=== PATIENT | male | born 1950 | race Two or more races ===

== ENCOUNTER 2017-08-15 12:35 | Emergency (ER) | payer MEDICARE, MEDICAID ==
[2017-08-15] MEDS: IPRATRPIUM/ALBUTEROL 0.5/2.5MG 3 ML NEBU. NEB (12:55)
[2017-08-15 12:57] LABS: ADD MAN DIFF? NO
[2017-08-15 12:59] LABS: BASO % 0 % (0-3); EOS % 0 % (0-3); HEMATOCRIT 44.6 % (39.0-53.0); HEMOGLOBIN 15.3 g/dL (13.0-17.5); LYMPH # 1.2 x10^3/uL (1.0-4.8); LYMPH % 10 % (24-48); MEAN CORPUSCULAR HEMOGLOBIN 30 pg (25-35); MEAN CORPUSCULAR HGB CONC 34 g/dL (31-37); MEAN CORPUSCULAR VOLUME 87 fL (79-100); MONO # 0.6 x10^3/uL (0.0-1.1); MONO % 5 % (0-9); NEUT # 9.9 x10^3uL (1.8-7.7); NEUT % 84 % (31-73); PLATELET COUNT 302 x10^3/uL (140-400); RED BLOOD COUNT 5.14 x10^6/uL (4.30-5.70); RED CELL DISTRIBUTION WIDTH 13.5 % (11.5-14.5); WHITE BLOOD COUNT 11.8 x10^3/uL (4.0-11.0)
[2017-08-15 13:06] LABS: BASE EXCESS ABG -2 mmol/L (-3-3); HCO3 ABG 24 mmol/L (21-28); PCO2 ABG 43 mmHg (35-46); PH ABG 7.36 (7.35-7.45); PO2 ABG 67 mmHg (65-108); SAT O2 ABG 92 % (92-99)
[2017-08-15] MEDS: methylPREDNISolone SOD SUCC PF 125 MG/2 ML VIAL. IV (13:08)
[2017-08-15 13:09] LABS: BLOOD UREA NITROGEN 28 mg/dL (8-26); BUN/CREATININE RATIO 25 (6-20); CREATININE 1.1 mg/dL (0.7-1.3); GLUCOSE 171 mg/dL (70-99)
[2017-08-15 13:10] LABS: ANION GAP 9 (6-14); CARBON DIOXIDE 28 mmol/L (21-32); CHLORIDE 105 mmol/L (98-107); GFR 66.6; SODIUM 142 mmol/L (136-145)
[2017-08-15 13:15] LABS: ALBUMIN 3.8 g/dL (3.4-5.0); ALK PHOS 107 U/L (46-116); ALT (SGPT) 18 U/L (16-63); AST (SGOT) 11 U/L (15-37); TOTAL BILIRUBIN 0.5 mg/dL (0.2-1.0); TOTAL PROTEIN 7.6 g/dL (6.4-8.2)
[2017-08-15 13:17] LABS: TROPONINI < 0.017 ng/mL (0.000-0.055)
[2017-08-15 13:21] LABS: NT-PRO BNP 35 pg/mL (0-124)
== END 2017-08-15 13:49 | disposition home or self-care (01) ==
LOC: ER 12:35
DX: J45.901 Unspecified asthma with (acute) exacerbation (principal); Z96.659 Presence of unspecified artificial knee joint
CPT/HCPCS: 36415; 36600; 71045; 80053; 82805; 83880; 84484; 85025; 93005; 94640; 96374; 99285-25; J2930; J7620

== ENCOUNTER 2017-10-15 15:15 | Emergency (ER) | payer MEDICARE, MEDICAID ==
[2017-10-15] MEDS: predniSONE 20 MG TABLET PO (16:08)
[2017-10-15] MEDS: CETIRIZINE HCL 10 MG TABLET. PO (16:08)
== END 2017-10-15 16:11 | disposition home or self-care (01) ==
LOC: ER 16:11
DX: L25.9 Unspecified contact dermatitis, unspecified cause (principal); J45.909 Unspecified asthma, uncomplicated
CPT/HCPCS: 99283; J7512

== ENCOUNTER → 2019-04-28 | Outpatient (CLI) | payer MEDICARE, MEDICAID ==
[2017-10-15 15:35] VITALS: BP 122/80
[~2019-04-28] MED LIST: ALBU2.5V5 NEB; AZIT250T PO; CELE100C PO; DIPH25CA58 PO; FAMO20TA5 PO; OXYC1TAB15 PO; PRED-220 PO; PRED20TA PO; PROVENTIL HFA6.7 GM IH; TRIA15OI TP
--- NOTE | 2019-04-28 12:29 | RAD ---
EXAM: Right shoulder, 3 views. HISTORY: Pain. COMPARISON: None. FINDINGS: 3 views of the right shoulder obtained. There is no fracture, dislocation or subluxation. There are surgical anchors within the humeral head. There is minimal acromioclavicular spurring. There are healed rib fractures. IMPRESSION: 1. No acute osseous finding. 2. Minimal acromioclavicular osteoarthritis. Electronically signed by: Milana Rojas MD (04/28/2019 12:26 PM) [facility] – [place]
== END | disposition home or self-care (01) ==
LOC: RAD 11:31
PROVIDERS: ATTEND Family Medicine
DX: M19.011 Primary osteoarthritis, right shoulder (principal)
CPT/HCPCS: 73030

== ENCOUNTER → 2019-10-04 | Outpatient (CLI) | payer MEDICARE, MEDICAID ==
[2017-10-15 15:35] VITALS: BP 122/80
--- NOTE | 2019-10-04 15:16 | RAD ---
PROCEDURE: HIP BILATERAL WITH PELVIS, KNEE LEFT 2V STUDY DATE: 10/04/2019 CLINICAL INDICATION / HISTORY: Reason: Left HIP PAIN / Spl. Instructions: / History: . TECHNIQUE:5 views of the bilateral and pelvis were obtained. COMPARISON: None FINDINGS: The osseous structures are normally mineralized. There is normal bony alignment present with the femoral heads well-seated within the acetabuli. There is no evidence of acute fracture or dislocation identified. The overlying soft tissues are grossly unremarkable. IMPRESSION: Unremarkable examination of the pelvis and bilateral hips. PROCEDURE: HIP BILATERAL WITH PELVIS, KNEE LEFT 2V STUDY DATE: 10/04/2019 CLINICAL INDICATION / HISTORY: Reason: HIP PAIN / Spl. Instructions: / History: . TECHNIQUE: AP and lateral views of the left knee COMPARISON: None FINDINGS: Left total knee arthroplasty in good alignment. Tiny ossific densities project over the patella superiorly. These could represent loose bodies. Osseous structures are otherwise intact. The articular surfaces are smooth. The joint space is maintained. The alignment is within normal limits. The soft tissues are unremarkable. No obvious joint effusion. No radio-opaque foreign bodies are identified. IMPRESSION: Left knee arthroplasty with possible suprapatellar loose bodies versus soft tissue heterotopic ossification in the region of the quadriceps tendon.. Electronically signed by: Jaime Sevilla MD (10/04/2019 3:13 PM) [id number]
== END | disposition home or self-care (01) ==
LOC: RAD 10:30
PROVIDERS: ATTEND Family Medicine
DX: M25.562 Pain in left knee (principal); M25.551 Pain in right hip; M25.552 Pain in left hip; Z96.652 Presence of left artificial knee joint
CPT/HCPCS: 73521; 73560

== ENCOUNTER 2019-11-03 21:15 | Inpatient (IN) | payer MEDICARE, MEDICAID ==
[~2019-11-03] VITALS: Ht 162.6 cm; Wt 61.1 kg
--- NOTE | 2019-11-03 21:39 | PHYS DOC ---
Past Medical History Past Medical History: Asthma Past Surgical History: Knee Replacement, Other Additional Past Surgical Histo: SHOULDER Smoking Status: Never Smoker Alcohol Use: None Drug Use: None General Adult EDM: Chief Complaint: CHEST PAIN HPI: HPI: Patient is a 69 year old male with history of asthma who presents to the ED today complaining of moderate left-sided chest pain radiating to the back that began an hour ago. Patient states symptoms are worse when he lays down. Denies anything specifically relieving the symptoms. Denies any pain radiating to bilateral upper extremities. Denies any fever, cough, congestion. Denies any contact with anyone with the COVID19. Review of Systems: Review of Systems: Constitutional: Denies fever or chills. [] Eyes: Denies change in visual acuity. [] HENT: Denies nasal congestion or sore throat. [] Respiratory: Denies cough or shortness of breath. [] Cardiovascular: Reports chest pain GI: Denies abdominal pain, nausea, vomiting, bloody stools or diarrhea. [] : Denies dysuria. [] Musculoskeletal: Denies back pain or joint pain. [] Integument: Denies rash. [] Neurologic: Denies headache, focal weakness or sensory changes. [] Psychiatric: Denies depression or anxiety. [] Heart Score: HEART Score for Chest Pain: HEART Score for Chest Pain Response (Comments) Value History Slighlty/Non-Suspicious 0 ECG Normal 0 Age > 65 2 Risk Factors No Risk Factors 0 Troponin < Normal Limit 0 Total 2 Risk Factors: Risk Factors: DM, Current or recent (<one month) smoker, HTN, HLP, family history of CAD, obesity. Risk Scores: Score 0 - 3: 2.5% MACE over next 6 weeks - Discharge Home Score 4 - 6: 20.3% MACE over next 6 weeks - Admit for Clinical Observation Score 7 - 10: 72.7% MACE over next 6 weeks - Early Invasive Strategies Allergies: Allergies: Allergies Coded Allergies Type Severity Reaction Last Updated Verified No Known Drug Allergies 11/25/15 No Physical Exam: PE: Constitutional: Well developed, well nourished, no acute distress, non-toxic appearance. [] HENT: Normocephalic, atraumatic, bilateral external ears normal, oropharynx moist, no oral exudates, nose normal. [] Eyes: PERRLA, EOMI, conjunctiva normal, no discharge. [] Neck: Normal range of motion, no tenderness, supple, no stridor. [] Cardiovascular:Heart rate regular rhythm, no murmur [] Lungs & Thorax: Bilateral breath sounds clear to auscultation [] Abdomen: Bowel sounds normal, soft, no tenderness, no masses, no pulsatile masses. [] Skin: Warm, dry, no erythema, no rash. [] Back: No tenderness, no CVA tenderness. [] Extremities: No tenderness, no cyanosis, no clubbing, ROM intact, no edema. [] Neurologic: Alert and oriented X 3, normal motor function, normal sensory function, no focal deficits noted. [] Psychologic: Affect normal, judgement normal, mood normal. [] EKG: EKG: Interpreted by Dr. Oneil sinus rhythm HR 68 no STEMI Radiology/Procedures: Radiology/Procedures: []PROCEDURE: PORTABLE CHEST 1V AP portable chest radiograph 11/03/2019 Clinical History: Chest pain. An AP erect portable digital radiograph of the chest was obtained. Comparison study is dated 08/15/2017. Two threaded screws overlie the right humeral head. The cardiac silhouette is mildly enlarged. The thoracic aorta is tortuous. Atherosclerotic calcification thoracic aorta is seen. No acute pulmonary infiltrate is noted. No pneumothorax or pleural effusion is seen. Mild S-shaped curvature of the thoracolumbar spine is noted. Degenerative changes are seen involving the thoracic spine and both shoulders. IMPRESSION: No acute abnormality is seen. Electronically signed by: Eduar Neal MD (11/03/2019 10:42 PM) [id number] DICTATED and SIGNED BY: EDUAR NEAL MD DATE: 11/03/19 2242 Course & Med Decision Making: Course & Med Decision Making Pertinent Labs and Imaging studies reviewed. (See chart for details) This is a 69-year-old male patient presenting to the ED today complaining of left-sided chest pain, symptoms began an hour ago. EKG is negative, troponin is normal, d-dimer is normal, CBC, CMP-no acute findings. Chest x-ray is negative Patient was admitted under Dr. Mello Routine consult placed for cardiology Dr. Oneil will give Dr. Mello report in the morning. Dragon Disclaimer: Dragcarrie Disclaimer: This electronic medical record was generated, in whole or in part, using a voice recognition dictation system. Departure Departure Impression: Primary Impression: Chest pain Qualified Codes: R07.9 - Chest pain, unspecified Disposition: ADMITTED INPATIENT Condition: STABLE Referrals: LINDA ORTIZ MD (PCP) Justicifation of Admission Dx: Justifications for Admission: Justification of Admission Dx: Yes CHF: Hemodynamic Instability ELBA RANDOLPH APRN Nov 03, 2019 21:39
[2019-11-03] MEDS ORDERED: NITROGLYCERIN SUBLINGUAL 0.4 MG BOTTLE OF 25. SL PRN ×2 (21:45→23:00)
[2019-11-03] MEDS ORDERED: MORPHINE SULFATE 4 MG/ML VIAL. IV/SQ PRN (21:45)
[2019-11-03] MEDS ORDERED: ASPIRIN 325 MG TABLET PO ONE (21:45)
[2019-11-03 22:00] LABS: BASO # 0.1 x10^3/uL (0.0-0.2); BASO % 1 % (0-3); EOS # 0.5 x10^3/uL (0.0-0.7); EOS % 8 % (0-3); HEMATOCRIT 41.9 % (39.0-53.0); LYMPH # 1.4 x10^3/uL (1.0-4.8); LYMPH % 21 % (24-48); MEAN CORPUSCULAR HEMOGLOBIN 29 pg (25-35); MEAN CORPUSCULAR HGB CONC 34 g/dL (31-37); MEAN CORPUSCULAR VOLUME 88 fL (79-100); MONO # 0.7 x10^3/uL (0.0-1.1); MONO % 11 % (0-9); NEUT % 60 % (31-73); PLATELET COUNT 259 x10^3/uL (140-400); RED BLOOD COUNT 4.78 x10^6/uL (4.30-5.70); RED CELL DISTRIBUTION WIDTH 13.7 % (11.5-14.5); WHITE BLOOD COUNT 6.7 x10^3/uL (4.0-11.0)
[2019-11-03 22:11] LABS: PROTHROMBIN TIME PATIENT 12.6 SEC (11.7-14.0)
[2019-11-03 22:14] LABS: D-DIMER < 0.27 ug/mlFEU (0.00-0.50)
[2019-11-03 22:28] LABS: CALCIUM 8.8 mg/dL (8.5-10.1); CREATININE 0.8 mg/dL (0.7-1.3); GFR 95.6; POTASSIUM 4.2 mmol/L (3.5-5.1)
[2019-11-03 22:34] LABS: ALBUMIN 3.4 g/dL (3.4-5.0); ALBUMIN/GLOBULIN RATIO 1.1 (1.0-1.7); MAGNESIUM 2.1 mg/dL (1.8-2.4); TOTAL BILIRUBIN 0.3 mg/dL (0.2-1.0); TOTAL PROTEIN 6.6 g/dL (6.4-8.2)
[2019-11-03] MEDS ORDERED: SMZ/TMP 800/160MG TABLET. PO ONE (22:45)
--- NOTE | 2019-11-03 22:45 | RAD ---
AP portable chest radiograph 11/03/2019 Clinical History: Chest pain. An AP erect portable digital radiograph of the chest was obtained. Comparison study is dated 08/15/2017. Two threaded screws overlie the right humeral head. The cardiac silhouette is mildly enlarged. The thoracic aorta is tortuous. Atherosclerotic calcification thoracic aorta is seen. No acute pulmonary infiltrate is noted. No pneumothorax or pleural effusion is seen. Mild S-shaped curvature of the thoracolumbar spine is noted. Degenerative changes are seen involving the thoracic spine and both shoulders. IMPRESSION: No acute abnormality is seen. Electronically signed by: Eduar Neal MD (11/03/2019 10:42 PM) [id number]
[2019-11-03] MEDS ORDERED: MORPHINE SULFATE 2 MG/ML VIAL. IV PRN (23:00)
[2019-11-03] MEDS ORDERED: ONDANSETRON PF 4 MG/2 ML VIAL. IV PRN (23:00)
[2019-11-04 00:45] VITALS: BP 118/67
[2019-11-04] MEDS ORDERED: VENTOLIN PO (01:18)
[2019-11-04] MEDS ORDERED: BUDE0.5A PO (01:18)
[2019-11-04 03:00] VITALS: BP 125/69
[2019-11-04 05:32] LABS: BASO % 1 % (0-3); EOS # 0.4 x10^3/uL (0.0-0.7); EOS % 6 % (0-3); HEMATOCRIT 39.4 % (39.0-53.0); HEMOGLOBIN 13.1 g/dL (13.0-17.5); LYMPH # 1.4 x10^3/uL (1.0-4.8); LYMPH % 24 % (24-48); MEAN CORPUSCULAR HEMOGLOBIN 29 pg (25-35); MEAN CORPUSCULAR HGB CONC 33 g/dL (31-37); MEAN CORPUSCULAR VOLUME 89 fL (79-100); MONO # 0.5 x10^3/uL (0.0-1.1); MONO % 8 % (0-9); NEUT # 3.5 x10^3/uL (1.8-7.7); NEUT % 61 % (31-73); PLATELET COUNT 218 x10^3/uL (140-400); RED BLOOD COUNT 4.43 x10^6/uL (4.30-5.70); RED CELL DISTRIBUTION WIDTH 13.9 % (11.5-14.5); WHITE BLOOD COUNT 5.8 x10^3/uL (4.0-11.0)
[2019-11-04 07:00] VITALS: BP 126/74
[2019-11-04 07:24] LABS: CALCIUM 8.2 mg/dL (8.5-10.1); CREATININE 0.5 mg/dL (0.7-1.3); GFR 164.4
[2019-11-04] MEDS ORDERED: ALBUTEROL SULFATE 2.5 MG/3 ML NEBU. NEB PRN (07:45)
[2019-11-04] MEDS ORDERED: LIDO:MAALOX 1:1 20 ML SINGLE DOSE. PO PRN (07:45)
--- NOTE | 2019-11-04 07:46 | PDOC1 ---
History and Physical Date of Admission Date of Admission DATE: 11/04/19 TIME: 07:38 Identification/Chief Complaint Chief Complaint Chest pain Source Source: Patient History of Present Illness History of Present Illness Mr Hernández is a 69 year old male with past medical history of asthma who presents to the ED 11/03/2019 complaining of moderate left-sided chest pain radiating to the back that began an hour prior to presentation patient states symptoms are worse when he lays down. Denies anything specifically relieving the symptoms. Denies any pain radiating to bilateral upper extremities. Denies any fever, cough, congestion. Denies any contact with anyone with the COVID19. Chest x-ray with no acute abnormalities screws noted on right shoulder. EKG heart rate [address] segment or T wave changes. CBC within normal limits basic metabolic panel with no abnormalities INR 1 d- dimer less than 0.27 BNP 35 TSH 1.757 troponin x3 negative. Admitted for further observation for his chest pain. On further interview his chest pain improved with a GI cocktail and nebulizer treatments. Past Medical History Pulmonary: Asthma Past Surgical History Past Surgical History: Other (Right shoulder) Current Problem List Problem List Problems Medical Problems: (1) Chest pain Status: Acute Current Medications Current Medications Current Medications Aspirin (Dougie Aspirin) 325 mg 1X ONCE PO Last administered on 11/03/19at 21:59; Start 11/03/19 at 21:45; Stop 11/03/19 at 21:46; Status DC Nitroglycerin (Nitrostat) 0.4 mg PRN Q5MIN PRN SL CP RATING > 1/10 Last administered on 11/03/19at 22:00; Start 11/03/19 at 21:45; Stop 11/03/19 at 22:55; Status DC Morphine Sulfate (Morphine Sulfate) 4 mg PRN Q15MIN PRN IV/SQ PAIN GREATER THAN 3/10 Last administered on 11/03/19at 22:01; Start 11/03/19 at 21:45; Stop 11/04/19 at 21:44 Trimethoprim/ Sulfamethoxazole (Bactrim Ds) 1 tab 1X ONCE PO Last administered on 11/03/19at 22:53; Start 11/03/19 at 22:45; Stop 11/03/19 at 22:46; Status DC Ondansetron HCl (Zofran) 4 mg PRN Q8HRS PRN IV NAUSEA/VOMITING; Start 11/03/19 at 23:00; Stop 11/04/19 at 22:59 Morphine Sulfate (Morphine Sulfate) 2 mg PRN Q2HR PRN IV PAIN; Start 11/03/19 at 23:00; Stop 11/04/19 at 22:59 Nitroglycerin (Nitrostat) 0.4 mg PRN Q5MIN PRN SL CHEST PAIN; Start 11/03/19 at 23:00; Stop 11/04/19 at 22:59 Active Scripts Active Albuterol Sulfate Neb Soln (Albuterol Sulfate) 2.5 Mg/3 Ml Vial.neb 1 Vial NEB PRN Q4HRS Proventil Hfa Inhaler (Albuterol Sulfate) 6.7 Gm Hfa.aer.ad 2 Puff IH PRN Q4HRS PRN It is imperative that this prescription being filled today. Reported Budesonide 0.5 Mg/2 Ml Ampul.neb 1 Vial PO QID PRN [Ventolin] 90mcg Aero 2 Puff PO PRN Q4-6HRS PRN Allergies Allergies: Coded Allergies: No Known Drug Allergies (Unverified , 11/25/15) ROS General: No: Chills, Night Sweats, Fatigue, Malaise, Appetite, Other PSYCHOLOGICAL ROS: No: Anxiety, Behavioral Disorder, Concentration difficultie, Decreased libido, Depression, Disorientation, Hallucinations, Hostility, Irritablity, Memory difficulties, Mood Swings, Obsessive thoughts, Physical ab use, Sexual abuse, Sleep disturbances, Suicidal ideation, Other Eyes: No Blurry vision, No Decreased vision, No Double vision, No Dry eyes, No Excessive tearing, No Eye Pain, No Itchy Eyes, No Loss of vision, No Photophobia, No Scotomata, No Uses contacts, No Uses glasses, No Other HEENT: No: Heacaches, Visual Changes, Hearing change, Nasal congestion, Nasal discharge, Oral lesions, Sinus pain, Sore Throat, Epistaxis, Sneezing, Snoring, Tinnitus, Vertigo, Vocal changes, Other ALLERGY AND IMMUNOLOGY: No: Hives, Insect Bite Sensitivity, Itchy/Watery Eyes, Nasal Congestion, Post Nasal Drip, Seasonal Allergies, Other Hematological and Lymphatic: No: Bleeding Problems, Blood Clots, Blood Transfusions, Brusing, Night Sweats, Pallor, Swollen Lymph Nodes, Other ENDOCRINE: No: Breast Changes, Galactorrhea, Hair Pattern Changes, Hot Flashes, Malaise/lethargy, Mood Swings, Palpitations, Polydipsia/polyuria, Skin Changes, Temperature Intolerance, Unexpected Weight Changes, Other Breast: No New/Changing Breast Lumps, No Nipple changes, No Nipple discharge, No Other Respiratory: No: Cough, Hemoptysis, Orthopnea, Pleuritic Pain, Shortness of breath, SOB with excertion, Sputum Changes, Stridor, Tachypnea, Wheezing, Other Cardiovascular: No Chest Pain, No Palpitations, No Orthopnea, No Paroxysmal Noc. Dyspnea, No Edema, No Lt Headedness, No Other Gastrointestinal: No Nausea, No Vomiting, No Abdominal Pain, No Diarrhea, No Constipation, No Melena, No Hematochezia, No Other Genitourinary: No Dysuria, No Frequency, No Incontinence, No Hematuria, No Retention, No Discharge, No Urgency, No Pain, No Flank Pain, No Other, No , No , No , No , No , No , No Musculoskeletal: No Gait Disturbance, No Joint Pain, No Joint Stiffness, No Joint Swelling, No Muscle Pain, No Muscular Weakness, No Pain In:, No Swelling In:, No Other Neurological: No Behavorial Changes, No Bowel/Bladder ControlChng, No Confusion, No Dizziness, No Gait Disturbance, No Headaches, No Impaired Coord/balance, No Memory Loss, No Numbness/Tingling, No Seizures, No Speech Problems, No Tremors, No Visual Changes, No Weakness, No Other Skin: No Dry Skin, No Eczema, No Hair Changes, No Lumps, No Mole Changes, No Mottling, No Nail Changes, No Pruritus, No Rash, No Skin Lesion Changes, No Other, No Acne Physical Exam General: Alert, Oriented X3, Cooperative, No acute distress HEENT: Atraumatic, PERRLA, EOMI, Mucous membr. moist/pink Lungs: Other (Diffuse scattered wheezes) Heart: S1S2, RRR, no thrills, no rubs, no gallops, no murmurs Abdomen: Normal bowel sounds, Soft, No tenderness, No hepatosplenomegaly, No masses Rectal Exam: not examined Extremities: No clubbing, No cyanosis, No edema, Normal pulses, No tenderness/swelling Skin: No rashes, No breakdown, No significant lesion Neuro: Normal gait, Normal speech, Strength at 5/5 X4 ext, Normal tone, Sensation intact, Cranial nerves 3-12 NL, Reflexes 2+ Psych/Mental Status: Mental status NL, Mood NL Vitals Vitals Vital Signs Date Time Temp Pulse Resp B/P (MAP) Pulse Ox O2 Delivery O2 Flow Rate FiO2 11/04/19 03:00 98.0 68 18 125/69 (87) 95 Room Air 98.0 Labs Labs Laboratory Tests Test 11/03/19 21:50 11/04/19 01:20 11/04/19 04:00 White Blood Count 6.7 x10^3/uL (4.0-11.0) 5.8 x10^3/uL (4.0-11.0) Red Blood Count 4.78 x10^6/uL (4.30-5.70) 4.43 x10^6/uL (4.30-5.70) Hemoglobin 14.0 g/dL (13.0-17.5) 13.1 g/dL (13.0-17.5) Hematocrit 41.9 % (39.0-53.0) 39.4 % (39.0-53.0) Mean Corpuscular Volume 88 fL (79-100) 89 fL (79-100) Mean Corpuscular Hemoglobin 29 pg (25-35) 29 pg (25-35) Mean Corpuscular Hemoglobin Concent 34 g/dL (31-37) 33 g/dL (31-37) Red Cell Distribution Width 13.7 % (11.5-14.5) 13.9 % (11.5-14.5) Platelet Count 259 x10^3/uL (140-400) 218 x10^3/uL (140-400) Neutrophils (%) (Auto) 60 % (31-73) 61 % (31-73) Lymphocytes (%) (Auto) 21 % (24-48) 24 % (24-48) Monocytes (%) (Auto) 11 % (0-9) 8 % (0-9) Eosinophils (%) (Auto) 8 % (0-3) 6 % (0-3) Basophils (%) (Auto) 1 % (0-3) 1 % (0-3) Neutrophils # (Auto) 4.0 x10^3/uL (1.8-7.7) 3.5 x10^3/uL (1.8-7.7) Lymphocytes # (Auto) 1.4 x10^3/uL (1.0-4.8) 1.4 x10^3/uL (1.0-4.8) Monocytes # (Auto) 0.7 x10^3/uL (0.0-1.1) 0.5 x10^3/uL (0.0-1.1) Eosinophils # (Auto) 0.5 x10^3/uL (0.0-0.7) 0.4 x10^3/uL (0.0-0.7) Basophils # (Auto) 0.1 x10^3/uL (0.0-0.2) 0.0 x10^3/uL (0.0-0.2) Prothrombin Time 12.6 SEC (11.7-14.0) Prothromb Time International Ratio 1.0 (0.8-1.1) D-Dimer (Aby) < 0.27 ug/mlFEU Sodium Level 143 mmol/L (136-145) 139 mmol/L (136-145) Potassium Level 4.2 mmol/L (3.5-5.1) 4.0 mmol/L (3.5-5.1) Chloride Level 108 mmol/L (98-107) 106 mmol/L (98-107) Carbon Dioxide Level 30 mmol/L (21-32) 23 mmol/L (21-32) Anion Gap 5 (6-14) 10 (6-14) Blood Urea Nitrogen 22 mg/dL (8-26) 18 mg/dL (8-26) Creatinine 0.8 mg/dL (0.7-1.3) 0.5 mg/dL (0.7-1.3) Estimated GFR (Cockcroft-Gault) 95.6 164.4 BUN/Creatinine Ratio 28 (6-20) Glucose Level 107 mg/dL (70-99) 89 mg/dL (70-99) Calcium Level 8.8 mg/dL (8.5-10.1) 8.2 mg/dL (8.5-10.1) Magnesium Level 2.1 mg/dL (1.8-2.4) Total Bilirubin 0.3 mg/dL (0.2-1.0) Aspartate Amino Transf (AST/SGOT) 12 U/L (15-37) Alanine Aminotransferase (ALT/SGPT) 22 U/L (16-63) Alkaline Phosphatase 88 U/L (46-116) Creatine Kinase 140 U/L (39-308) Creatine Kinase MB (Mass) 1.9 ng/mL (0.0-3.6) Creatine Kinase MB Relative Index 1.4 % (0-4) Troponin I Quantitative < 0.017 ng/mL (0.000-0.055) < 0.017 ng/mL (0.000-0.055) < 0.017 ng/mL (0.000-0.055) NM-Vae-Y-Type Natriuretic Peptide 35 pg/mL (0-124) Total Protein 6.6 g/dL (6.4-8.2) Albumin 3.4 g/dL (3.4-5.0) Albumin/Globulin Ratio 1.1 (1.0-1.7) Thyroid Stimulating Hormone (TSH) 1.797 uIU/mL (0.358-3.74) Laboratory Tests Test 11/03/19 21:50 11/04/19 01:20 11/04/19 04:00 White Blood Count 6.7 x10^3/uL (4.0-11.0) 5.8 x10^3/uL (4.0-11.0) Red Blood Count 4.78 x10^6/uL (4.30-5.70) 4.43 x10^6/uL (4.30-5.70) Hemoglobin 14.0 g/dL (13.0-17.5) 13.1 g/dL (13.0-17.5) Hematocrit 41.9 % (39.0-53.0) 39.4 % (39.0-53.0) Mean Corpuscular Volume 88 fL (79-100) 89 fL (79-100) Mean Corpuscular Hemoglobin 29 pg (25-35) 29 pg (25-35) Mean Corpuscular Hemoglobin Concent 34 g/dL (31-37) 33 g/dL (31-37) Red Cell Distribution Width 13.7 % (11.5-14.5) 13.9 % (11.5-14.5) Platelet Count 259 x10^3/uL (140-400) 218 x10^3/uL (140-400) Neutrophils (%) (Auto) 60 % (31-73) 61 % (31-73) Lymphocytes (%) (Auto) 21 % (24-48) 24 % (24-48) Monocytes (%) (Auto) 11 % (0-9) 8 % (0-9) Eosinophils (%) (Auto) 8 % (0-3) 6 % (0-3) Basophils (%) (Auto) 1 % (0-3) 1 % (0-3) Neutrophils # (Auto) 4.0 x10^3/uL (1.8-7.7) 3.5 x10^3/uL (1.8-7.7) Lymphocytes # (Auto) 1.4 x10^3/uL (1.0-4.8) 1.4 x10^3/uL (1.0-4.8) Monocytes # (Auto) 0.7 x10^3/uL (0.0-1.1) 0.5 x10^3/uL (0.0-1.1) Eosinophils # (Auto) 0.5 x10^3/uL (0.0-0.7) 0.4 x10^3/uL (0.0-0.7) Basophils # (Auto) 0.1 x10^3/uL (0.0-0.2) 0.0 x10^3/uL (0.0-0.2) Prothrombin Time 12.6 SEC (11.7-14.0) Prothromb Time International Ratio 1.0 (0.8-1.1) D-Dimer (Aby) < 0.27 ug/mlFEU Sodium Level 143 mmol/L (136-145) 139 mmol/L (136-145) Potassium Level 4.2 mmol/L (3.5-5.1) 4.0 mmol/L (3.5-5.1) Chloride Level 108 mmol/L (98-107) 106 mmol/L (98-107) Carbon Dioxide Level 30 mmol/L (21-32) 23 mmol/L (21-32) Anion Gap 5 (6-14) 10 (6-14) Blood Urea Nitrogen 22 mg/dL (8-26) 18 mg/dL (8-26) Creatinine 0.8 mg/dL (0.7-1.3) 0.5 mg/dL (0.7-1.3) Estimated GFR (Cockcroft-Gault) 95.6 164.4 BUN/Creatinine Ratio 28 (6-20) Glucose Level 107 mg/dL (70-99) 89 mg/dL (70-99) Calcium Level 8.8 mg/dL (8.5-10.1) 8.2 mg/dL (8.5-10.1) Magnesium Level 2.1 mg/dL (1.8-2.4) Total Bilirubin 0.3 mg/dL (0.2-1.0) Aspartate Amino Transf (AST/SGOT) 12 U/L (15-37) Alanine Aminotransferase (ALT/SGPT) 22 U/L (16-63) Alkaline Phosphatase 88 U/L (46-116) Creatine Kinase 140 U/L (39-308) Creatine Kinase MB (Mass) 1.9 ng/mL (0.0-3.6) Creatine Kinase MB Relative Index 1.4 % (0-4) Troponin I Quantitative < 0.017 ng/mL (0.000-0.055) < 0.017 ng/mL (0.000-0.055) < 0.017 ng/mL (0.000-0.055) LA-Uht-L-Type Natriuretic Peptide 35 pg/mL (0-124) Total Protein 6.6 g/dL (6.4-8.2) Albumin 3.4 g/dL (3.4-5.0) Albumin/Globulin Ratio 1.1 (1.0-1.7) Thyroid Stimulating Hormone (TSH) 1.797 uIU/mL (0.358-3.74) Images Images CXR: Two threaded screws overlie the right humeral head. The cardiac silhouette is mildly enlarged. The thoracic aorta is tortuous. Atherosclerotic calcification thoracic aorta is seen. No acute pulmonary infiltrate is noted. No pneumothorax or pleural effusion is seen. Mild S-shaped curvature of the thoracolumbar spine is noted. Degenerative changes are seen involving the thoracic spine and both shoulders. IMPRESSION: No acute abnormality is seen. VTE Prophylaxis Ordered VTE Prophylaxis Devices: No VTE Pharmacological Prophylaxi: Yes Assessment/Plan Assessment/Plan A/P: Chest pain -EKG and troponin negative, ruled out acute OK. D-dimer negative rules out pulmonary embolism. Asthmatreatment for mild acute exacerbation FEN - Cardiac diet PPX - Lovenox FULL CODE Dispo - echo, consult cardiology and likely d/c home on singulair Justicifation of Admission Dx: Justifications for Admission: Justification of Admission Dx: Yes CHF: Hemodynamic Instability CURLY HERRON MD Nov 04, 2019 07:46
[2019-11-04] MEDS ORDERED: IPRATRPIUM/ALBUTEROL 0.5/2.5MG 3 ML NEBU. NEB SCH (08:00)
--- NOTE | 2019-11-04 08:37 | PDOC2 ---
PRAMOD HILLS BUSINESS INITIATIVES MANAGER 11/04/19 0837: CARDIAC CONSULT DATE OF CONSULT Date of Consult DATE: 11/04/19 TIME: 08:35 REASON FOR CONSULT Reason for Consult: Chest pain REFERRING PHYSICIAN Referring Physician: Kamran SOURCE Source: Chart review, Patient HISTORY OF PRESENT ILLNESS HISTORY OF PRESENT ILLNESS This is a pleasant 69 yo male admitted for complains of chest pain. Had some SOA. Reports that in the last 2 days he has been coughing, although nonproductive he also felt some wheezing. Complains of mid chest pressure but no n/v or palpitations. No reported fever or chills and no recent infection. He does have asthma but nonsmoker and no recreational drug use. Denies any CAD, VTE and no recent falls or injury and denies any presyncopal events. No fever or chills PAST MEDICAL HISTORY Pulmonary: Asthma, COPD (?) GI: GERD Musculoskeletal: Osteoarthritis PAST SURGICAL HISTORY Past Surgical History: Arthroscopy (rtc), Hernia Repair, Total knee replacement (bilateral) FAMILY HISTORY Family History noncontributory SOCIAL HISTORY Smoke: No ALCOHOL: none Drugs: None Lives: with Family CURRENT MEDICATIONS CURRENT MEDICATIONS Current Medications Medications (Trade) Dose Ordered Sig/Foreign Route PRN Reason Start Time Stop Time Status Last Admin Dose Admin Aspirin (Dougie Aspirin) 325 mg 1X ONCE PO 11/03/19 21:45 11/03/19 21:46 DC 11/03/19 21:59 Nitroglycerin (Nitrostat) 0.4 mg PRN Q5MIN PRN SL CP RATING > 1/10 11/03/19 21:45 11/03/19 22:55 DC 11/03/19 22:00 Morphine Sulfate (Morphine Sulfate) 4 mg PRN Q15MIN PRN IV/SQ PAIN GREATER THAN 3/10 11/03/19 21:45 11/04/19 21:44 11/03/19 22:01 Trimethoprim/ Sulfamethoxazole (Bactrim Ds) 1 tab 1X ONCE PO 11/03/19 22:45 11/03/19 22:46 DC 11/03/19 22:53 ALLERGIES ALLERGIES: Coded Allergies: No Known Drug Allergies (Unverified , 11/25/15) ROS Review of System 14 point ROS evaluated with pertinent positives noted per HPI PHYSICAL EXAM General: Alert, Oriented X3, Cooperative, No acute distress HEENT: Atraumatic, Mucous membr. moist/pink Lungs: Other (diffuse faint wheeze) Heart: Regular rate (SR), Normal S1, Normal S2, Other (2/6 systolic murmur to LLS border) Abdomen: Soft, No tenderness Extremities: No cyanosis, No edema Skin: No breakdown, No significant lesion Neuro: Normal speech, Sensation intact Psych/Mental Status: Mental status NL, Mood NL MUSCULOSKELETAL: Osteoarthritic changes both hands VITALS/I&O VITALS/I&O: Vital Signs Date Time Temp Pulse Resp B/P (MAP) Pulse Ox O2 Delivery O2 Flow Rate FiO2 11/04/19 07:00 97.4 70 18 126/74 (91) 96 Room Air 97.4 I & O 11/03/19 11/03/19 11/04/19 15:00 23:00 07:00 Intake Total 0 ml Output Total 200 ml Balance -200 ml LABS Lab: Laboratory Tests Test 11/03/19 21:50 11/04/19 01:20 11/04/19 04:00 White Blood Count 6.7 x10^3/uL (4.0-11.0) 5.8 x10^3/uL (4.0-11.0) Red Blood Count 4.78 x10^6/uL (4.30-5.70) 4.43 x10^6/uL (4.30-5.70) Hemoglobin 14.0 g/dL (13.0-17.5) 13.1 g/dL (13.0-17.5) Hematocrit 41.9 % (39.0-53.0) 39.4 % (39.0-53.0) Mean Corpuscular Volume 88 fL (79-100) 89 fL (79-100) Mean Corpuscular Hemoglobin 29 pg (25-35) 29 pg (25-35) Mean Corpuscular Hemoglobin Concent 34 g/dL (31-37) 33 g/dL (31-37) Red Cell Distribution Width 13.7 % (11.5-14.5) 13.9 % (11.5-14.5) Platelet Count 259 x10^3/uL (140-400) 218 x10^3/uL (140-400) Neutrophils (%) (Auto) 60 % (31-73) 61 % (31-73) Lymphocytes (%) (Auto) 21 % (24-48) L 24 % (24-48) Monocytes (%) (Auto) 11 % (0-9) H 8 % (0-9) Eosinophils (%) (Auto) 8 % (0-3) H 6 % (0-3) H Basophils (%) (Auto) 1 % (0-3) 1 % (0-3) Neutrophils # (Auto) 4.0 x10^3/uL (1.8-7.7) 3.5 x10^3/uL (1.8-7.7) Lymphocytes # (Auto) 1.4 x10^3/uL (1.0-4.8) 1.4 x10^3/uL (1.0-4.8) Monocytes # (Auto) 0.7 x10^3/uL (0.0-1.1) 0.5 x10^3/uL (0.0-1.1) Eosinophils # (Auto) 0.5 x10^3/uL (0.0-0.7) 0.4 x10^3/uL (0.0-0.7) Basophils # (Auto) 0.1 x10^3/uL (0.0-0.2) 0.0 x10^3/uL (0.0-0.2) Prothrombin Time 12.6 SEC (11.7-14.0) Prothrombin Time INR 1.0 (0.8-1.1) D-Dimer (Aby) < 0.27 ug/mlFEU Sodium Level 143 mmol/L (136-145) 139 mmol/L (136-145) Potassium Level 4.2 mmol/L (3.5-5.1) 4.0 mmol/L (3.5-5.1) Chloride Level 108 mmol/L (98-107) H 106 mmol/L (98-107) Carbon Dioxide Level 30 mmol/L (21-32) 23 mmol/L (21-32) Anion Gap 5 (6-14) L 10 (6-14) Blood Urea Nitrogen 22 mg/dL (8-26) 18 mg/dL (8-26) Creatinine 0.8 mg/dL (0.7-1.3) 0.5 mg/dL (0.7-1.3) L Estimated GFR (Cockcroft-Gault) 95.6 164.4 BUN/Creatinine Ratio 28 (6-20) H Glucose Level 107 mg/dL (70-99) H 89 mg/dL (70-99) Calcium Level 8.8 mg/dL (8.5-10.1) 8.2 mg/dL (8.5-10.1) L Magnesium Level 2.1 mg/dL (1.8-2.4) Total Bilirubin 0.3 mg/dL (0.2-1.0) Aspartate Amino Transferase (AST) 12 U/L (15-37) L Alanine Aminotransferase (ALT) 22 U/L (16-63) Alkaline Phosphatase 88 U/L (46-116) Creatine Kinase 140 U/L (39-308) Creatine Kinase MB (Mass) 1.9 ng/mL (0.0-3.6) Creatine Kinase MB Relative Index 1.4 % (0-4) Troponin I Quantitative < 0.017 ng/mL (0.000-0.055) < 0.017 ng/mL (0.000-0.055) < 0.017 ng/mL (0.000-0.055) XZ-Tyy-M-Type Natriuretic Peptide 35 pg/mL (0-124) Total Protein 6.6 g/dL (6.4-8.2) Albumin 3.4 g/dL (3.4-5.0) Albumin/Globulin Ratio 1.1 (1.0-1.7) Thyroid Stimulating Hormone (TSH) 1.797 uIU/mL (0.358-3.74) Laboratory Tests 11/03/19 21:50 11/04/19 04:00 Laboratory Tests 11/03/19 21:50 11/04/19 04:00 ASSESSMENT/PLAN ASSESSMENT/PLAN Chest pain: suspect from bronchospasm. No arrhythmias. Asthma exacerbation Mild cardiomegaly: EKG SR with RAD otherwise no acute changes HTN? Recommendations lipids and TTE Asthma treatment per PCP May DC if TTE is unremarkable. VIKTORIYA HOGUE MD 11/06/192055: CARDIAC CONSULT ASSESSMENT/PLAN ASSESSMENT/PLAN Late entry for 11/04/2019 Pt. seen and examined. Agree with above CHIEF COUNSEL note. PRAMOD HILLS BUSINESS INITIATIVES MANAGER Nov 04, 2019 08:37 VIKTORIYA HOGUE MD Nov 06, 2019 20:56
[2019-11-04 08:52] LABS: CHOLESTEROL/HDL RATIO 2.7
[2019-11-04] MEDS ORDERED: BUDESONIDE 0.5 MG/2 ML NEBU. NEB SCH ×2 (09:00→12:00)
--- NOTE | 2019-11-04 10:02 | EKG ---
[facility] [address] [place] [address] Test Date: 2019-11-03 Test Time: 21:26:06 Pat Name: JO FLOYD Department: Room: 206 1 Gender: M Doctor Assistant: : 1950 Requested By: ELBA RANDOLPH Order Number: [id number] Reading MD: Poncho Ca MD Measurements Intervals [place] Rate: 68 P: 45 RI: 156 QRS: 24 QRSD: 78 T: 29 QT: 366 QTc: 394 Interpretive Statements SINUS RHYTHM Electronically Signed On 11-04-2019 13:15:17 CDT by Poncho Ca MD
[2019-11-04] MEDS ORDERED: MONTELUKAST SODIUM 10 MG TABLET. PO SCH (10:30)
[2019-11-04 11:00] VITALS: BP 136/86
--- NOTE | 2019-11-04 11:24 | NUR ---
SS following for discharge planning. SS reviewed pt chart and discussed with pt RN. Pt is from home with spouse and is currently on room air. Possible discharge home today if medically cleared. SS will continue to follow for discharge planning.
[2019-11-04] MEDS: IPRATRPIUM/ALBUTEROL 0.5/2.5MG 3 ML NEBU. NEB SCH ×2 (11:47→16:05)
[2019-11-04 14:51] VITALS: BP 114/67
[2019-11-04] MEDS ORDERED: MONT10TA49 PO (15:10)
[2019-11-04] MEDS ORDERED: CIME800T PO (15:10)
--- NOTE | 2019-11-04 16:31 | PDOC3 ---
Discharge Summary Visit Information Date of Admission: Nov 03, 2019 Date of Discharge: Nov 04, 2019 Admitting Diagnosis: Chest pain Final Diagnosis Problems Medical Problems: (1) Chest pain Status: Acute Brief Hospital Course Allergies Allergies Coded Allergies Type Severity Reaction Last Updated Verified No Known Drug Allergies 11/25/15 No Vital Signs Vital Signs Date Time Temp Pulse Resp B/P (MAP) Pulse Ox O2 Delivery O2 Flow Rate FiO2 11/04/19 16:06 94 Room Air 11/04/19 14:51 98.0 75 18 114/67 (83) 98.0 Lab Results Laboratory Tests Test 11/03/19 21:50 11/04/19 01:20 11/04/19 04:00 White Blood Count 6.7 x10^3/uL (4.0-11.0) 5.8 x10^3/uL (4.0-11.0) Red Blood Count 4.78 x10^6/uL (4.30-5.70) 4.43 x10^6/uL (4.30-5.70) Hemoglobin 14.0 g/dL (13.0-17.5) 13.1 g/dL (13.0-17.5) Hematocrit 41.9 % (39.0-53.0) 39.4 % (39.0-53.0) Mean Corpuscular Volume 88 fL (79-100) 89 fL (79-100) Mean Corpuscular Hemoglobin 29 pg (25-35) 29 pg (25-35) Mean Corpuscular Hemoglobin Concent 34 g/dL (31-37) 33 g/dL (31-37) Red Cell Distribution Width 13.7 % (11.5-14.5) 13.9 % (11.5-14.5) Platelet Count 259 x10^3/uL (140-400) 218 x10^3/uL (140-400) Neutrophils (%) (Auto) 60 % (31-73) 61 % (31-73) Lymphocytes (%) (Auto) 21 % (24-48) 24 % (24-48) Monocytes (%) (Auto) 11 % (0-9) 8 % (0-9) Eosinophils (%) (Auto) 8 % (0-3) 6 % (0-3) Basophils (%) (Auto) 1 % (0-3) 1 % (0-3) Neutrophils # (Auto) 4.0 x10^3/uL (1.8-7.7) 3.5 x10^3/uL (1.8-7.7) Lymphocytes # (Auto) 1.4 x10^3/uL (1.0-4.8) 1.4 x10^3/uL (1.0-4.8) Monocytes # (Auto) 0.7 x10^3/uL (0.0-1.1) 0.5 x10^3/uL (0.0-1.1) Eosinophils # (Auto) 0.5 x10^3/uL (0.0-0.7) 0.4 x10^3/uL (0.0-0.7) Basophils # (Auto) 0.1 x10^3/uL (0.0-0.2) 0.0 x10^3/uL (0.0-0.2) Prothrombin Time 12.6 SEC (11.7-14.0) Prothromb Time International Ratio 1.0 (0.8-1.1) D-Dimer (Aby) < 0.27 ug/mlFEU Sodium Level 143 mmol/L (136-145) 139 mmol/L (136-145) Potassium Level 4.2 mmol/L (3.5-5.1) 4.0 mmol/L (3.5-5.1) Chloride Level 108 mmol/L (98-107) 106 mmol/L (98-107) Carbon Dioxide Level 30 mmol/L (21-32) 23 mmol/L (21-32) Anion Gap 5 (6-14) 10 (6-14) Blood Urea Nitrogen 22 mg/dL (8-26) 18 mg/dL (8-26) Creatinine 0.8 mg/dL (0.7-1.3) 0.5 mg/dL (0.7-1.3) Estimated GFR (Cockcroft-Gault) 95.6 164.4 BUN/Creatinine Ratio 28 (6-20) Glucose Level 107 mg/dL (70-99) 89 mg/dL (70-99) Calcium Level 8.8 mg/dL (8.5-10.1) 8.2 mg/dL (8.5-10.1) Magnesium Level 2.1 mg/dL (1.8-2.4) Total Bilirubin 0.3 mg/dL (0.2-1.0) Aspartate Amino Transf (AST/SGOT) 12 U/L (15-37) Alanine Aminotransferase (ALT/SGPT) 22 U/L (16-63) Alkaline Phosphatase 88 U/L (46-116) Creatine Kinase 140 U/L (39-308) Creatine Kinase MB (Mass) 1.9 ng/mL (0.0-3.6) Creatine Kinase MB Relative Index 1.4 % (0-4) Troponin I Quantitative < 0.017 ng/mL (0.000-0.055) < 0.017 ng/mL (0.000-0.055) < 0.017 ng/mL (0.000-0.055) YH-Zdf-U-Type Natriuretic Peptide 35 pg/mL (0-124) Total Protein 6.6 g/dL (6.4-8.2) Albumin 3.4 g/dL (3.4-5.0) Albumin/Globulin Ratio 1.1 (1.0-1.7) Thyroid Stimulating Hormone (TSH) 1.797 uIU/mL (0.358-3.74) Triglycerides Level 45 mg/dL (0-150) Cholesterol Level 140 mg/dL (0-200) LDL Cholesterol, Calculated 79 mg/dL (0-100) VLDL Cholesterol, Calculated 9 mg/dL (0-40) Non-HDL Cholesterol Calculated 88 mg/dL (0-129) HDL Cholesterol 52 mg/dL (40-60) Cholesterol/HDL Ratio 2.7 Laboratory Tests Test 11/03/19 21:50 11/04/19 01:20 11/04/19 04:00 White Blood Count 6.7 x10^3/uL (4.0-11.0) 5.8 x10^3/uL (4.0-11.0) Red Blood Count 4.78 x10^6/uL (4.30-5.70) 4.43 x10^6/uL (4.30-5.70) Hemoglobin 14.0 g/dL (13.0-17.5) 13.1 g/dL (13.0-17.5) Hematocrit 41.9 % (39.0-53.0) 39.4 % (39.0-53.0) Mean Corpuscular Volume 88 fL (79-100) 89 fL (79-100) Mean Corpuscular Hemoglobin 29 pg (25-35) 29 pg (25-35) Mean Corpuscular Hemoglobin Concent 34 g/dL (31-37) 33 g/dL (31-37) Red Cell Distribution Width 13.7 % (11.5-14.5) 13.9 % (11.5-14.5) Platelet Count 259 x10^3/uL (140-400) 218 x10^3/uL (140-400) Neutrophils (%) (Auto) 60 % (31-73) 61 % (31-73) Lymphocytes (%) (Auto) 21 % (24-48) 24 % (24-48) Monocytes (%) (Auto) 11 % (0-9) 8 % (0-9) Eosinophils (%) (Auto) 8 % (0-3) 6 % (0-3) Basophils (%) (Auto) 1 % (0-3) 1 % (0-3) Neutrophils # (Auto) 4.0 x10^3/uL (1.8-7.7) 3.5 x10^3/uL (1.8-7.7) Lymphocytes # (Auto) 1.4 x10^3/uL (1.0-4.8) 1.4 x10^3/uL (1.0-4.8) Monocytes # (Auto) 0.7 x10^3/uL (0.0-1.1) 0.5 x10^3/uL (0.0-1.1) Eosinophils # (Auto) 0.5 x10^3/uL (0.0-0.7) 0.4 x10^3/uL (0.0-0.7) Basophils # (Auto) 0.1 x10^3/uL (0.0-0.2) 0.0 x10^3/uL (0.0-0.2) Prothrombin Time 12.6 SEC (11.7-14.0) Prothromb Time International Ratio 1.0 (0.8-1.1) D-Dimer (Aby) < 0.27 ug/mlFEU Sodium Level 143 mmol/L (136-145) 139 mmol/L (136-145) Potassium Level 4.2 mmol/L (3.5-5.1) 4.0 mmol/L (3.5-5.1) Chloride Level 108 mmol/L (98-107) 106 mmol/L (98-107) Carbon Dioxide Level 30 mmol/L (21-32) 23 mmol/L (21-32) Anion Gap 5 (6-14) 10 (6-14) Blood Urea Nitrogen 22 mg/dL (8-26) 18 mg/dL (8-26) Creatinine 0.8 mg/dL (0.7-1.3) 0.5 mg/dL (0.7-1.3) Estimated GFR (Cockcroft-Gault) 95.6 164.4 BUN/Creatinine Ratio 28 (6-20) Glucose Level 107 mg/dL (70-99) 89 mg/dL (70-99) Calcium Level 8.8 mg/dL (8.5-10.1) 8.2 mg/dL (8.5-10.1) Magnesium Level 2.1 mg/dL (1.8-2.4) Total Bilirubin 0.3 mg/dL (0.2-1.0) Aspartate Amino Transf (AST/SGOT) 12 U/L (15-37) Alanine Aminotransferase (ALT/SGPT) 22 U/L (16-63) Alkaline Phosphatase 88 U/L (46-116) Creatine Kinase 140 U/L (39-308) Creatine Kinase MB (Mass) 1.9 ng/mL (0.0-3.6) Creatine Kinase MB Relative Index 1.4 % (0-4) Troponin I Quantitative < 0.017 ng/mL (0.000-0.055) < 0.017 ng/mL (0.000-0.055) < 0.017 ng/mL (0.000-0.055) SE-Hqe-M-Type Natriuretic Peptide 35 pg/mL (0-124) Total Protein 6.6 g/dL (6.4-8.2) Albumin 3.4 g/dL (3.4-5.0) Albumin/Globulin Ratio 1.1 (1.0-1.7) Thyroid Stimulating Hormone (TSH) 1.797 uIU/mL (0.358-3.74) Triglycerides Level 45 mg/dL (0-150) Cholesterol Level 140 mg/dL (0-200) LDL Cholesterol, Calculated 79 mg/dL (0-100) VLDL Cholesterol, Calculated 9 mg/dL (0-40) Non-HDL Cholesterol Calculated 88 mg/dL (0-129) HDL Cholesterol 52 mg/dL (40-60) Cholesterol/HDL Ratio 2.7 Brief Hospital Course Mr Hernández is a 69 year old male with past medical history of asthma who presents to the ED 11/03/2019 complaining of moderate left-sided chest pain radiating to the back that began an hour prior to presentation patient states symptoms are worse when he lays down. Denies anything specifically relieving the symptoms. Denies any pain radiating to bilateral upper extremities. Denies any fever, cough, congestion. Denies any contact with anyone with the COVID19. Chest x-ray with no acute abnormalities screws noted on right shoulder. EKG heart rate [address] segment or T wave changes. CBC within normal limits basic metabolic panel with no abnormalities INR 1 d- dimer less than 0.27 BNP 35 TSH 1.757 troponin x3 negative. Admitted for further observation for his chest pain. On further interview his chest pain improved with a GI cocktail and nebulizer treatments. Seen by cardiology in consultation, echocardiogram performed with no significant abnormalities. Discharged with singulair QHS for asthma control and H2 Юлия BID for reflux symptoms Problem list: Chest pain -EKG and troponin negative, ruled out acute ID. D-dimer negative rules out pulmonary embolism. Asthmatreatment for mild acute exacerbation Greater than 30 minutes spent on d/c home Discharge Information Condition at Discharge: Improved Follow Up: Weeks Disposition/Orders: D/C to Home Scheduled Albuterol Sulfate (Albuterol Sulfate Neb Soln) 2.5 Mg/3 Ml Vial.neb, 1 VIAL NEB PRN Q4HRS, #50 Ref 3 Prescribed by: ALLISON HERCULES D.O. on 08/15/17 1330 Last Action: Continued on 11/04/19 0746 by CURLY HERRON MD Cimetidine (Cimetidine) 800 Mg Tablet, 800 MG PO BID for GERD for 30 Days, #60 Prescribed by: CURLY HERRON MD on 11/04/19 1510 Montelukast Sodium (Montelukast Sodium Tablet ) 10 Mg Tablet, 10 MG PO QHS for Asthma for 90 Days, #90 Ref 3 Prescribed by: CURLY HERRON MD on 11/04/19 1510 Scheduled PRN Albuterol Sulfate (Proventil Hfa Inhaler) 6.7 Gm Hfa.aer.ad, 2 PUFF IH PRN Q4HRS PRN for asthma, #1 Ref 3 It is imperative that this prescription being filled today. Prescribed by: ALLISON HERCULES D.O. on 08/15/17 1323 Last Action: Reviewed on 11/04/19111 by FRANCIS ROBERTS Budesonide (Budesonide) 0.5 Mg/2 Ml Ampul.neb, 1 VIAL PO QID PRN for SHORTNESS OF BREATH, (Reported) Entered as Reported by: FRANCIS ROBERTS on 11/04/19117 Last Taken: Unknown Dose on Unknown Date & Time Last Action: Continued on 11/04/19 0746 by CURLY HERRON MD [Ventolin] 90mcg AERO, 2 PUFF PO PRN Q4-6HRS PRN for SHORTNESS OF BREATH, (Reported) Entered as Reported by: FRANCIS ROBERTS on 11/04/19117 Last Taken: UNKNOWN on Unknown Date & Time Last Action: New Order on 11/04/19117 by FRANCIS ROBERTS Justicifation of Admission Dx: Justifications for Admission: Justification of Admission Dx: Yes CHF: Hemodynamic Instability CURLY HERRON MD Nov 04, 2019 16:31
--- NOTE | 2019-11-04 16:34 | CARD ---
MR#: [id number] Date of Study: 11/04/2019 Ordering Physician: PRAMOD HILLS, Referring Physician: PRAMOD HILLS, Tech: Rhonda Ag APPROVED REPORT EXAM: Two-dimensional and M-mode echocardiogram with Doppler and color Doppler. Other Information Quality : AverageHR: 68bpm Technically limited study due to Asthma/COPD INDICATION Chest Pain Abnormal EKG 2D DIMENSIONS Left Atrium(2D)3.1 (1.6-4.0cm)IVSd1.1 (0.7-1.1cm) Aortic Root(2D)3.1 (2.0-3.7cm)LVDd4.2 (3.9-5.9cm) LVOT Diameter2.1 (1.8-2.4cm)PWd1.1 (0.7-1.1cm) LVDs2.8 (2.5-4.0cm)FS (%) 34.2 % SV49.8 mlLVEF(%)63.6 (>50%) Aortic Valve AoV Peak Vikash.156.1cm/sAoV VTI27.2cm AO Peak GR.9.7mmHgLVOT Peak Vikash.140.3cm/s LVOT VTI 20.58cmAO Mean GR.5mmHg TOSHIA (VMAX)2.55cv0KFG (VTI)2.61cm2 AI P 1/2 [id number] Mitral Valve MV E Qboynxaj97.3cm/sMV DECEL OHQQ517px MV A Nwzrqorp35.7cm/sMV E Mean Gr.1mmHg MV SRU31zmQ/A Ratio1.4 MVA (PHT)3.87cm2 TDI E/Lateral E'7.5E/Medial E'7.7 Pulmonary Valve PV Peak Ydqjeqpp67.3cm/sPV Peak Grad.4mmHg Tricuspid Valve TR P. Vophtjpb529dy/sRAP CPVFAUSC7beDm TR Peak Gr.46igHyWJVT68dzCs Pulmonary Vein S1 Uedsnxfm56.3cm/sD2 Ewajvgkf65.5cm/s PVa [id number] LEFT VENTRICLE The left ventricle is normal size. There is normal left ventricular wall thickness. The left ventricu lar systolic function is normal. The Ejection Fraction is 60-65%. There is normal LV segmental wall m otion. RIGHT VENTRICLE The right ventricle is normal size. There is normal right ventricular wall thickness. The right ventr icular systolic function is normal. ATRIA The left atrium size is normal. The right atrium size is normal. The interatrial septum is intact wit h no evidence for an atrial septal defect or patent foramen ovale as noted on 2-D or Doppler imaging. AORTIC VALVE The aortic valve is thickened but opens well. Doppler and Color Flow revealed trace aortic regurgitat ion. Calculated aortic valve area is 2.89 cm2 with maximum pressure gradient of 9 mmHg and mean press ure gradient of 5 mmHg. There is no significant aortic valvular stenosis. MITRAL VALVE The mitral valve is normal in structure and function. There is no evidence of mitral valve prolapse. There is no mitral valve stenosis. Doppler and Color-flow revealed trace mitral regurgitation. TRICUSPID VALVE The tricuspid valve is normal in structure and function. Doppler and Color Flow revealed trace tricus pid regurgitation with an estimated PAP of 35 mmHg. There is no tricuspid valve stenosis. PULMONIC VALVE The pulmonic valve is not well visualized. Doppler and Color Flow revealed no pulmonic valvular regur gitation. GREAT VESSELS The aortic root is normal in size. The IVC is normal in size and collapses >50% with inspiration. PERICARDIAL EFFUSION There is no evidence of significant pericardial effusion. Critical Notification Critical Value: No <Conclusion> The left ventricular systolic function is normal. The Ejection Fraction is 60-65%. There is normal LV segmental wall motion. Trace mitral regurgitation. Trace tricuspid regurgitation with an estimated PAP of 35 mmHg. There is no evidence of significant pericardial effusion. Signed by : Vlad Gupta, Electronically Approved : 11/04/2019 16:33:47
== END 2019-11-04 16:45 | disposition home or self-care (01) | DRG 203 ==
LOC: ER 21:15 → 2 NORTH 22:54
PROVIDERS: ADMIT Family Medicine; ATTEND Family Medicine
DX: J45.901 Unspecified asthma with (acute) exacerbation (principal); I50.9 Heart failure, unspecified; J44.9 Chronic obstructive pulmonary disease, unspecified; Z96.653 Presence of artificial knee joint, bilateral; K21.9 Gastro-esophageal reflux disease without esophagitis; M19.90 Unspecified osteoarthritis, unspecified site; Z79.899 Other long term (current) drug therapy
CPT/HCPCS: 36415; 71045; 80048; 80053; 80061; 82553; 83735; 83880; 84443; 84484; 85025; 85379; 85610; 93005; 93306; 94640; 96374; J2270; 99285-25; G0378; J7626

== ENCOUNTER → 2020-11-26 | Outpatient (CLI) | payer MEDICARE ==
[~2020-11-26] MED LIST changes: +BUDE0.5A PO; +CIME800T PO; +MONT10TA49 PO; +VENTOLIN PO
--- NOTE | 2020-11-26 14:55 | RAD ---
Examination: MRI of the left shoulder without contrast HISTORY: History of left shoulder pain COMPARISON: None available TECHNIQUE: Multiplanar, multisequence MR imaging of the left shoulder without contrast FINDINGS: The long head of the biceps tendon within the bicipital groove. The attachment of the long head the b iceps tendon to the superior labral anchor grossly appears intact. The attachment of the subscapulari s grossly appears intact. There is full-thickness tear of the supraspinatus tendon with tendon retrac tion up to the level of the mid humerus head. Probable full-thickness tear of the infraspinatus tendo n. The acromion is type II. Mild degenerative changes glenohumeral joint. The visualized labrum gross ly appears unremarkable. Small shoulder joint effusion. Moderate degenerative changes acromioclavicul ar joint. There is mild obscuration of fat in the rotator interval. IMPRESSION: 1.Full-thickness tear of the supraspinatus tendon with tendon retraction up to the level of the mid h umerus head. Probable full-thickness tear of the infraspinatus tendon. Recommend MRI arthrogram right shoulder for better evaluation. 2. Mild obscuration of fat in the rotator interval likely adhesive capsulitis. Electronically signed by: Tono Gallo MD (11/26/2020 2:52 PM) [id number]
== END ==
LOC: MRI 13:01
PROVIDERS: ATTEND Orthopaedic Surgery
DX: M75.122 Complete rotator cuff tear or rupture of left shoulder, not specified as traumatic (principal); M19.012 Primary osteoarthritis, left shoulder; M25.412 Effusion, left shoulder
CPT/HCPCS: 73221